=== PATIENT | female | born 2000 | race Two or more races ===

== ENCOUNTER 2019-10-22 17:04 | Outpatient (CLI) | payer MEDICAID ==
[2019-10-22 17:48] LABS: BACTERIA (WET MOUNT) 4+ BACTERIA SEEN; EPITHELIALS (WET MOUNT) 4+ EPITHELIALS SEEN; T.VAGINALIS (WET MOUNT) NO TRICHOMONAS SEEN; WBCS (WET MOUNT) 4+ WBCS SEEN; YEAST (WET MOUNT) YEAST SEEN
[2019-10-22 17:51] LABS: APPEARANCE,URINE SLIGHTLY-CLOUDY; BILIRUBIN,URINE NEGATIVE (NEGATIVE); COLOR,URINE YELLOW; GLUCOSE, URINE 50 mg/dL (NEGATIVE); KETONES,URINE NEGATIVE (NEGATIVE); LEUKOCYTE ESTERASE,URINE TRACE (NEGATIVE); NITRITE,URINE NEGATIVE (NEGATIVE); PROTEIN,URINE 100 mg/dL (NEGATIVE); URINE SPECIFIC GRAVITY 1.025; UROBILINOGEN,URINE NEGATIVE mg/dL (<2.0)
[2019-10-22] MEDS ORDERED: FLUCONAZOLE 100 MG TABLET ONE (18:11)
[2019-10-22 18:21] LABS: URINE AMPHETAMINES SCREEN NEGATIVE; URINE BARBITURATES SCREEN NEGATIVE; URINE BENZODIAZEPINES SCREEN NEGATIVE; URINE COCAINE SCREEN NEGATIVE; URINE MARIJUANA (THC) SCREEN NEGATIVE; URINE METHADONE SCREEN NEGATIVE; URINE PHENCYCLIDINE SCREEN NEGATIVE
--- NOTE | 2019-10-22 18:23 | Non Stress Test Report ---
Non Stress Test Datetime Report Generated by CPN: 10/22/2019 18:22 DEMOGRAPHIC EGA NST: 37.3 INDICATION Indication for Study (NST) Other: IUP 37.3, Provider Order, LC VITAL SIGNS Temperature - NST: 98.0 Pulse - NST: 86 RESP - NST: 16 NBPSYS NST: 123 NBPDIA NST: 74 MONITORING Monitor Explained: Monitor Explained; Test Explained; Patient Verbalized Understanding Time on Monitor: 10/22/2019 17:19 Time off Monitor: 10/22/2019 17:49 NST INTERVENTIONS NST Interventions: None Physician Notified NST: Dr. Aguilar BABY A: [id number] BABY A Movement : Present Contraction Frequency : Irregular FHR Baseline : 135 Accelerations : 15X15 Decelerations : None Variability : Moderate 6-25bpm NST Review: Meets Criteria for Reactive NST NST Review and Verified By : Edelmira Peña RN NST Results: Reactive NST REPORT Report Trigger: Send Report
[2019-10-22] MEDS ORDERED: FLUCONAZOLE 100 MG TABLET PO ONE (18:30)
[2019-10-22 19:13] LABS: CHLAM PCR NOT DETECTED (NOT DETECT)
== END 2019-10-22 18:15 | disposition home or self-care (01) ==
LOC: LC 17:04
PROVIDERS: ATTEND Obstetrics & Gynecology
DX: O98.813 Other maternal infectious and parasitic diseases complicating pregnancy, third trimester (principal); B37.9 Candidiasis, unspecified; O98.313 Other infections with a predominantly sexual mode of transmission complicating pregnancy, third trimester; A60.00 Herpesviral infection of urogenital system, unspecified; Z79.899 Other long term (current) drug therapy; Z3A.37 37 weeks gestation of pregnancy; Z87.891 Personal history of nicotine dependence
CPT/HCPCS: 59025; 87210; 81005; 80307; 87491; 87591; J3490

== ENCOUNTER → 2019-11-11 | Outpatient (CLI) | payer BC, MEDICAID ==
[2019-11-11 17:21] LABS: ALBUMIN 3.7 g/dL (3.5-5.0); ALKALINE PHOSPHATASE 165 U/L (38-126); ASPARTATE AMINO TRANSFERASE 25 U/L (14-36); BILIRUBIN,DIRECT 0.3 mg/dL (0.0-0.4); BILIRUBIN,TOTAL 0.4 mg/dL (0.2-1.3); TOTAL PROTEIN 6.6 g/dL (6.3-8.2)
== END ==
LOC: OD 16:11
PROVIDERS: ATTEND Midwife
DX: L29.9 Pruritus, unspecified (principal)
CPT/HCPCS: 36415; 80076; 82239

== ENCOUNTER 2019-11-12 16:37 | Inpatient (IN) | payer BC, MEDICAID ==
[2019-11-12] MEDS ORDERED: PENICILLIN G-K 5 MILLION UNIT VIAL ONE (16:52)
[2019-11-12] MEDS ORDERED: OXYTOCIN 10 UNIT/ML VIAL ONE (16:52)
[2019-11-12] MEDS ORDERED: MISOPROSTOL 0.2 MG TABLET ONE (16:52)
[2019-11-12] MEDS ORDERED: OXYTOCIN/0.9 % SODIUM CHLORIDE 30 UNIT/500 ML RTUINJ ONE (16:52)
[2019-11-12] MEDS ORDERED: LIDOCAINE 1% INJ-PF (10 MG/ML) 30 ML SDV ONE (16:52)
[2019-11-12 17:04] LABS: APPEARANCE,URINE CLOUDY; BILIRUBIN,URINE NEGATIVE (NEGATIVE); COLOR,URINE YELLOW; GLUCOSE, URINE NEGATIVE (NEGATIVE); KETONES,URINE NEGATIVE (NEGATIVE); LEUKOCYTE ESTERASE,URINE LARGE (NEGATIVE); NITRITE,URINE NEGATIVE (NEGATIVE); PROTEIN,URINE 100 mg/dL (NEGATIVE); URINE SPECIFIC GRAVITY 1.017; UROBILINOGEN,URINE NEGATIVE mg/dL (<2.0)
[2019-11-12] MEDS: RINGERS SOLUTION,LACTATED 1,000 ML IV PRN (17:15)
[2019-11-12 17:23] LABS: URINE AMPHETAMINES SCREEN NEGATIVE; URINE BARBITURATES SCREEN NEGATIVE; URINE BENZODIAZEPINES SCREEN NEGATIVE; URINE COCAINE SCREEN NEGATIVE; URINE MARIJUANA (THC) SCREEN NEGATIVE; URINE METHADONE SCREEN NEGATIVE; URINE PHENCYCLIDINE SCREEN NEGATIVE
[2019-11-12] MEDS ORDERED: DINOPROSTONE 10 MG VAGINAL INSERT.SR PV ONE (17:23)
[2019-11-12] MEDS ORDERED: ACETAMINOPHEN 325 MG TABLET PO PRN (17:23)
[2019-11-12] MEDS ORDERED: ZOLPIDEM TARTRATE 5 MG TABLET PO PRN (17:23)
[2019-11-12] MEDS ORDERED: MAG HYDROX/AL HYDROX/SIMETH SUSP 30 ML UDCUP PO PRN (17:23)
[2019-11-12 18:07] LABS: ABSOLUTE EOSINOPHILS # (AUTO) 0.1 10^3/uL (0.0-0.6); ABSOLUTE LYMPHOCYTES (AUTO) 1.2 10^3/uL (0.5-4.7); ABSOLUTE MONOCYTES (AUTO) 0.7 10^3/uL (0.1-1.4); ABSOLUTE NEUT (AUTO) 5.8 10^3/uL (1.7-8.2); BASOPHILS % (AUTO) 0.3 % (0-2); EOSINOPHILS % (AUTO) 0.8 % (0-6); HEMATOCRIT 29.8 % (36.0-47.0); LYMPHOCYTES % (AUTO) 15.4 % (13-45); MEAN CORPUSCULAR HEMOGLOBIN 28.2 pg (27.0-33.4); MEAN CORPUSCULAR HGB CONC 33.5 g/dL (32.0-36.0); MEAN CORPUSCULAR VOLUME 84 fl (80-97); MONOCYTES % (AUTO) 8.6 % (3-13); PLATELET COUNT 224 10^3/uL (150-450); RED BLOOD COUNT 3.54 10^6/uL (3.72-5.28); SEGMENTED NEUTROPHILS % (AUTO) 74.9 % (42-78); TOTAL CELLS COUNTED % (AUTO) 100 %; WHITE BLOOD COUNT 7.7 10^3/uL (4.0-10.5)
[2019-11-12] MEDS ORDERED: DINOPROSTONE 10 MG VAGINAL INSERT.SR ONE (18:27)
[2019-11-12] MEDS ORDERED: ZOLPIDEM TARTRATE 5 MG TABLET ONE (20:41)
--- NOTE | 2019-11-12 22:21 | Admission Physical ---
Datetime Report Generated by CPN: 11/12/2019 22:21 CURRENT ADMISSION Chief Complaint: Uterine Contractions Chief Complaint Other: rash on abdomen becoming worse. i saw her in the office yesterday and can compare assessments. Today the rash is redder and has spread further down the abdomen Indication for Induction: Other Indication for Induction- Other: suspected cholestasis of . Admit Impression : Term, Intrauterine ; Induction of Labor Admit Plan: Admit to Unit; Initiate Labor Induction Protocol ALLERGIES Medication Allergies: Yes Medication Allergies: amoxicillin (11/12/2019) Latex: Unknown OBSTETRICAL HISTORY EDC: 11/09/2019 00:00 : 1 Para: 0 Term: 0 : 0 SAB: 0 IAB: 0 Ectopic: 0 Livin Cesareans: 0 VBACs: 0 Multiple Births: 0 Gestational Diabetes: No Rh Sensitization: No Incompetent Cervix: No FELICIANO: No Infertility: No ART Treatment: No Uterine Anomaly: No IUGR: No Hx Previous C/S: No Macrosomia: No Hx Loss/Stillborn: No PIH: No Hx : No Placenta Previa/Abruption: No Depression/PP Depression: No PTL/PROM: No Post Hemorrhage: No Current Procedures: Ultrasound Obstetrical History Comments: G1- current SEE RECORDS Alcohol: No Marijuana : No Cocaine: No Other Illicit Drugs: No Cigarettes: Former Smoker. 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 Surgery: No Heart Disease: No Hosp/Surgery: Yes Autoimmune Disorder: No Anesthetic Complications: No Kidney Disease: No Abnormal Pap Smear: No Neuro/Epilepsy: No Psychiatric Disorders: No Other Medical Diseases: No Hepatitis/Liver Disease: No Significant Family History: No Varicosities/Phlebitis: No Trauma/Violence : No Thyroid Dysfunction: No Medical History Comments: wisdom teeth extraction and oral surgery- 06/2017 INFECTIOUS HISTORY Gonorrhea: No Genital Herpes: Yes Chlamydia: Yes Tuberculosis: No Syphilis: No Hepatitis: No HIV/AIDS Exposure: No Rash or Viral Illness: No HPV: No Infectious History Comments: 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 Vital Signs: Reviewed VAGINAL EXAM Dilatation: 2 Effacement: 25 Station: -3 MEMBRANES Pooling: Negative Membranes: Intact FETUS A EGA: 40.3 Monitoring: External US FHR- Baseline: 129 Variability: Moderate 6-25bpm Accelerations: 15X15 Decelerations: None FHR Category: Category I Estimated Weight (gm): 3900 Presentation: Vertex Admit Comment: labs will not be back for a couple of days, however, patient is very symptomatic and it is suspicous for cholestasis. She is postterm and symptoms worsening. will go ahead with induction. PLANS FOR LABOR AND DELIVERY Labor and Delivery: None Pain Management: Natural; Medications; Epidural Feeding Preference: Breast Benefit of Breast Feed Discussed: Yes Circumcision: N/A INFORMED CONSENT Signature: with User ID: [email or web address]
[2019-11-13] MEDS ORDERED: DIPHENHYDRAMINE HCL 50 MG/ML VIAL IV PRN ×2 (06:46→12:01)
[2019-11-13] MEDS ORDERED: OXYTOCIN/0.9 % SODIUM CHLORIDE 30 UNIT/500 ML RTUINJ IV PRN ×2 (07:09→12:16)
[2019-11-13] MEDS ORDERED: VANCOMYCIN HCL INJ 1000 MG VIAL IV ONE (07:10)
[2019-11-13] MEDS ORDERED: VANCOMYCIN HCL INJ 1000 MG VIAL ONE (07:13)
[2019-11-13] MEDS ORDERED: VANCOMYCIN HCL INJ 1000 MG VIAL IV PRN (07:26)
[2019-11-13] MEDS ORDERED: VANCOMYCIN HCL 1,000 MG in DEXTROSE 5%-WATER 250 ML IV SCH (07:30)
[2019-11-13] MEDS ORDERED: VANCOMYCIN HCL 1,500 MG in DEXTROSE 5%-WATER 250 ML IV ONE (07:30)
[2019-11-13] MEDS ORDERED: VANCOMYCIN HCL 1,000 MG in DEXTROSE 5%-WATER 250 ML IV ONE (07:30)
[2019-11-13] MEDS ORDERED: DIPHENHYDRAMINE HCL 50 MG/ML VIAL ONE (08:06)
--- NOTE | 2019-11-13 08:18 | Warning Signs in Babies ---
VOD Warning Signs Datetime Report Generated by [facility]: 11/13/2019 08:18 VOD#608 -Warning Signs in Babies: Viewed with Parent(s)/Family (11/13/2019 08:17:Cam Shaw RN)
[2019-11-13] MEDS: RINGERS SOLUTION,LACTATED 1,000 ML IV PRN ×3 (08:30→21:36)
[2019-11-13] MEDS: VANCOMYCIN HCL 1,000 MG in DEXTROSE 5%-WATER 250 ML IV SCH ×2 (08:54→12:52)
[2019-11-13] MEDS ORDERED: CITRIC ACID/SODIUM CITRATE ORAL SOLN 15 ML UDCUP ONE (11:00)
[2019-11-13] MEDS ORDERED: CEFAZOLIN 2 GM/D5W RTU 2 GM/50 ML RTUPB IV ONE (11:00)
[2019-11-13] MEDS ORDERED: MIDAZOLAM 2 MG/2 ML INJ ONE (11:16)
[2019-11-13] MEDS ORDERED: OXYTOCIN 10 UNIT/ML VIAL ONE (11:16)
[2019-11-13] MEDS ORDERED: MORPHINE SULFATE 10 MG/ML INJ ONE ×2 (11:16→13:12)
[2019-11-13] MEDS ORDERED: OXYTOCIN/0.9 % SODIUM CHLORIDE 30 UNIT/500 ML RTUINJ ONE (11:16)
[2019-11-13] MEDS ORDERED: ONDANSETRON HCL INJ/PF 4 MG/2 ML SDV ONE (11:17)
[2019-11-13] MEDS ORDERED: PHENYLEPHRINE HCL INJ/PF 10 MG/1 ML SDV ONE (11:31)
[2019-11-13] MEDS ORDERED: MORPHINE SULFATE 10 MG/ML INJ IV PRN ×2 (12:01→12:16)
[2019-11-13] MEDS ORDERED: MEPERIDINE HCL/PF INJ 25 MG/1 ML DISP.SYRIN IV PRN (12:01)
[2019-11-13] MEDS ORDERED: FENTANYL CITRATE INJ/PF 100 MCG/2 ML AMPUL IV PRN ×3 (12:01)
[2019-11-13] MEDS ORDERED: PROMETHAZINE HCL INJ 25 MG/1 ML VIAL IV PRN ×3 (12:01→12:16)
[2019-11-13] MEDS ORDERED: RINGERS SOLUTION,LACTATED 1,000 ML IV PRN (12:16)
[2019-11-13] MEDS ORDERED: ACETAMINOPHEN 1,000 MG/100 ML RTUPB IV PRN (12:16)
[2019-11-13] MEDS ORDERED: ACETAMINOPHEN 325 MG TABLET PO PRN (12:16)
[2019-11-13] MEDS ORDERED: DIPH/PERTUSS(ACELL)/TETANUS VAC/PF 0.5 ML SYR (>=10YO) IM PRN (12:16)
[2019-11-13] MEDS ORDERED: SIMETHICONE 80 MG TAB.CHEW PO PRN (12:16)
[2019-11-13] MEDS ORDERED: MEASLES,MUMPS&RUBELLA VACC/PF 0.5 ML VIAL SUBCUT PRN (12:16)
[2019-11-13] MEDS ORDERED: OXYCODONE-ACETAMINOPHEN 5-325 MG TABLET PO PRN (12:16)
--- NOTE | 2019-11-13 12:23 | Operative Report ---
Operative Report DATE OF SURGERY: 11/13/19 PREOPERATIVE DIAGNOSIS: IUP at 8 weeks and 3 days, cholestasis of rc picion, nonreassuring heart tones POSTOPERATIVE DIAGNOSIS: Same OPERATION: Primary low transverse hysterotomy section SURGEON: MARLEY BARAJAS ANESTHESIA: Spinal COMPLICATIONS: None ESTIMATED BLOOD LOSS: 800 cc INTRAOPERATIVE FINDINGS: Female cephalic presentation Apgars 8 and 9 normal uterus tubes and ovaries PROCEDURE: PROCEDURE IN DETAIL: The patient was taken to the operating room, prepared and draped in a normal sterile fashion in a supine position with a leftward tilt. A transverse skin incision was made with a scalpel and carried through to the underlying layer of fascia with the same scalpel. The fascia was excised in the midline and extended laterally with Robinson. The fascia was then dissected from the rectus muscle sharply with Robinson and the rectus muscle was divided and the peritoneal cavity was entered sharply with the same Metzenbaum. With good visualization of the bladder and the uterus the bladder blade was inserted. The hysterotomy was nicked with a scalpel and extended laterally with surgeon finger fraction. The was then delivered atraumatically. The nose and mouth were suctioned with a suction bulb, the cord was clamped and cut and handed off to awaiting pediatricians. Cord blood was collected. The placenta was removed manually. The uterus was exteriorized and cleared of clots and debris. The hysterotomy was closed with 0 Monocryl in a running, locked fashion. A second layer of the same suture was used to imbricate to ensure hemostasis. The uterus was returned to the abdomen and peritoneal cavity was cleared of clots and debris. The rectus muscle and peritoneum were repaired with mattress stitch of 2-0 Chromic. The fascia was closed with 0-Vicryl. The subcutaneous layer was closed with plain catgut and the skin was closed with 4-0 Vicryl. The patient tolerated the procedure well. Sponge, lap, and needle counts correct x2 and the patient was taken to recovery in stable condition.
[2019-11-13] MEDS ORDERED: KETOROLAC TROMETHAMINE INJ/PF 30 MG/1 ML SDV ONE (12:57)
[2019-11-13] MEDS ORDERED: ACETAMINOPHEN 1,000 MG/100 ML RTUPB IV ONE (12:58)
[2019-11-13] MEDS: KETOROLAC TROMETHAMINE INJ/PF 30 MG/1 ML SDV IV SCH ×2 (13:02→21:59)
--- NOTE | 2019-11-13 14:16 | Birth Certificate Data ---
Cert Data Datetime Report Generated by CPN: 11/13/2019 14:15 CERTIFICATE DATA 47a. Care: Yes (10/22/2019 17:09:Cam Shaw RN) 47b. Date of First Visit: 08/05/2019 00:00 (10/22/2019 17:09:Cam Shaw RN) 47c. Date of Last Visit: 11/11/2019 00:00 (10/22/2019 17:09:Cam Shaw RN) 47d. Number of Visits: 10 (10/22/2019 17:09:Cam Shaw RN) 48a. Number of Prev Live Births: 0 (10/22/2019 17:09:Tiffani Vogel RN) 48b. Now Livin (10/22/2019 17:09:Tiffani Vogel RN) 48c. Live Births Now : 0 (10/22/2019 17:09:QS system process) 48e. Losses: 0 (10/22/2019 17:09:Tiffani Vogel RN) RISK FACTORS IN THIS 49a. Diabetes: No (10/22/2019 17:09:Tiffani Vogel RN) 49b. Hypertension: No (10/22/2019 17:09:Tiffani Vogel RN) 49c. Previous Births: 0 (10/22/2019 17:09:Tiffani Vogel RN) 49d. Stillborns: No (10/22/2019 17:09:Yumiko Sauer RN) 49d. IUGR: No (10/22/2019 17:09:Tiffani Vogel RN) 49e. Infertility Treatment: No (10/22/2019 17:09:Tiffani Vogel RN) 49f. Previous Cesareans: 0 (10/22/2019 17:09:Tiffani Vogel RN) Mother's Height 50b. Height Inches: 65 (11/12/2019 16:44:QS system process) Mother's Weight 51a. Pre- Weight (lbs): 135 (10/22/2019 17:09:Yumiko Sauer RN) 51b. Weight at Delivery (lbs): 174 (11/13/2019 13:44:QS system process) 52. Dt Last Normal Menses Began: 02/02/2019 00:00 (10/22/2019 17:09:Tiffani Vogel RN) Infections Present/Treated 53a. Gonorrhea: No (10/22/2019 17:09:Tiffani Vogel RN) Results this Hospital Visit : Negative (10/22/2019 17:09:Yumiko Sauer RN) 53b. Syphilis: No (10/22/2019 17:09:Tiffani Vogel RN) 53c. Chlamydia: Yes (10/22/2019 17:09:Cam Shaw RN) Results this Hospital Visit: Negative (10/22/2019 17:09:Yumiko Sauer RN) 53d. Hepatitis B: No (10/22/2019 17:09:Yumiko Sauer RN) Results this Hospital Visit: Negative (10/22/2019 17:09:Yumiko Sauer RN) 53e. Hepatitis C: Negative (10/22/2019 17:09:Yumiko Sauer RN) 53h. Mother Tested for HBsAG: Yes (10/22/2019 17:09:Yumiko Sauer RN) 53i. Date Tested: 08/22/2019 00:00 (10/22/2019 17:09:Yumiko Sauer RN) 53j. Test Result: Negative (10/22/2019 17:09:Yumiko Sauer RN) Obstetric Procedures 54a, b, c. Obstetric Procedures: Ultrasound (10/22/2019 17:09:Yumiko Sauer RN) Cigarette Smoking Cigarette Smoking: Former Smoker. [id number] (10/22/2019 17:09:Tiffani Vogel RN) 55a. 3 Months Before Preg - Ci (10/22/2019 17:09:Tiffani Vogel RN) 55a. Packs: 0 (10/22/2019 17:09:Tiffani Vogel RN) 55b. 1st Trimester of Preg- Ci (10/22/2019 17:09:Tiffani Vogel RN) 55b. Packs: 0 (10/22/2019 17:09:Tiffani Vogel RN) 55c. 2nd Trimester of Preg- Ci (10/22/2019 17:09:Tiffani Vogel RN) 55c. Packs: 0 (10/22/2019 17:09:Tiffani Vogel RN) 55d. 3rd Trimester of Preg- Ci (10/22/2019 17:09:Tiffani Vogel RN) 55d. Packs: 0 (10/22/2019 17:09:Tiffani Vogel RN) Onset of Labor 56a. PROM >12 Hrs: 0.00 (10/22/2019 17:09:QS system process) 57a. Induction of Labor: Induction (10/22/2019 17:09:Stacy Peña RN) 57a. Induction of Labor: Cervidil (11/12/2019 18:33:Cam Shaw RN) 57c. Non-Vertex Presentation A: Vertex (10/22/2019 17:09:Stacy Peña RN) 57d. Steroids - Lung Mat: None (10/22/2019 17:09:Stacy Peña RN) 57d. Steroids - Lung Mat: Not Applicable (10/22/2019 17:09:Stacy Peña RN) 57e. Antibiotics During Labor: 11/13/2019 08:54 (10/22/2019 17:09:Stacy Peña RN) 57g. Moderate/Heavy Meconium: Clear (10/22/2019 17:09:Cam Shaw RN) 57h. Intolerance of Labor: Nonreassuring Status (10/22/2019 17:09:Stacy Peña RN) : N/A (10/22/2019 17:09:Stacy Peña RN) 57i. Epidural/Spinal Anesthesia: None (10/22/2019 17:09:Stacy Peña RN) Method of Delivery 58a. Forceps - Unsuccessful A: N/A (10/22/2019 17:09:Stacy Peña RN) 58b. Vacuum - Unsuccessful A: N/A (10/22/2019 17:09:Stacy Peña RN) 58c. Presentation at 58c. Presentation at - A : Vertex (10/22/2019 17:09:Stacy Peña RN) 58c. Presentation at - A : N/A (10/22/2019 17:09:Stacy Peña RN) 58c. Presentation at - A : Cephalic (11/13/2019 08:48:Cam Shaw RN) Final Route and Method of Del 58d. Baby A Route/Delivery: (10/22/2019 17:09:Stacy Peña RN) 58e. Trial of Labor Attempted: No (10/22/2019 17:09:Stacy Peña RN) 58e. Trial of Labor Attempted A: N/A (10/22/2019 17:09:Stacy Peña RN) 58e. Trial of Labor Attempted B: N/A (10/22/2019 17:09:Stacy Peña RN) Maternal Morbidity 59b. 3rd or 4th Degree Lacs: None (10/22/2019 17:09:Stacy Peña, RN) Birthweight Baby A: 3530 (10/22/2019 17:09:Grace Marie RN) 60a. Pounds : 7 (10/22/2019 17:09:QS system process) 60b. Ounces: 13 (10/22/2019 17:09:QS system process) 61. GA at Delivery Baby A: 40.4 (10/22/2019 17:09:Stacy Peña RN) : Full Term- 39- 40.6 Weeks (10/22/2019 17:09:QS system process) 62a. 5 Minute Baby A: 9 (10/22/2019 17:09:QS system process)
--- NOTE | 2019-11-13 14:16 | Delivery Summary ---
Del Sum A-C Datetime Report Generated by CPN: 11/13/2019 14:15 DELIVERY PERSONNEL DELIVERY PERSONNEL: [id number] Delivery Doctor:: Alison Sheikh MD AERONAUTICAL ENGINEERING PROFESSOR:: Ayden García CRNA Labor and Delivery Nurse:: Cam Shaw RN Nuclear Chemistry Technician:: Cam Shaw RN Urgent Care Nurse Practitioner:: Dr. Oksana Garcia Nursery Nurse:: Rosangela Mejia RN Assistant Operator/OIL TANK CAR CLEANER: Marisa Brewer CST Assistant Operator/OIL TANK CAR CLEANER: Valentina Gloria, PUBLIC OPINION SURVEY TAKER MATERNAL INFORMATION Delivery Anesthesia: Spinal Medications After Delivery: Pitocin 30 Units in 500ml NS/D5W Delivery QBL: 545 Maternal Complications: None LABOR SUMMARY EDC: 11/09/2019 00:00 No. Babies in Womb: 1 Attempted: No Labor Anesthesia: None LABOR INFORMATION Reason for Induction: Other Reason for Induction- Other: possible cholestasis, post dates Cervical Ripening Agents: Cervidil Oxytocin: Induction Group B Beta Strep: Positive Antibiotics # of Doses: 1 Antibiotics Time of Last Dose: 11/13/2019 08:54 Name of Antibiotic Given: vanc Steroids Given: None Reason Steroids Not Administered: Not Applicable MEMBRANES Membranes Rupture Method: Artificial Rupture of Membranes: 11/13/2019 11:41 Length of Rupture (hr): 0.00 Amniotic Fluid Color: Clear Amniotic Fluid Amount: Small Amniotic Fluid Odor: Normal STAGES OF LABOR Stage 3 hr: 0 Stage 3 min: 1 VAGINAL DELIVERY Episiotomy: None Laceration #1: None Laceration Extension #1: N/A Laceration Repair: Not Applicable Sponge Count Correct: N/A Sharps Count Correct: N/A CSECTION DELIVERY Primary Indication: Nonreassuring Status Secondary Indication: N/A CSection Urgency: Non-Scheduled CSection Incidence: Primary Labor: No Labor Elective: Nonelective CSection Incision: Lower Uterine Transverse BABY A INFORMATION Delivery Date/Time: 11/13/2019 11:41 Method of Delivery: Nurse Controlled Delivery: No Born in Route : No : N/A Forceps: N/A Vacuum Extraction: N/A Shoulder Dystocia : No PRESENTATION/POSITION BABY A Presentation: Cephalic Cephalic Presentation: Vertex Vertex Position: Left Occipital Posterior Breech Presentation: N/A PLACENTA INFORMATION BABY A Placenta Delivery Time : 11/13/2019 11:42 Placenta Method of Delivery: Manual Removal Placenta Status: Delivered SCORES BABY A Heart Rate 1 min: >100 bpm Resp Effort 1 min: Good Cry Reflex Irritability 1 min: Cough or Sneeze or Pulls Away Muscle Tone 1 min: Active Motion Color 1 min: Body [place], Extremities Blue Resuscitation Effort 1 min: N/A SCORE 1 MIN: 9 Heart Rate 5 min: >100 bpm Resp Effort 5 min: Good Cry Reflex Irritability 5 min: Cough or Sneeze or Pulls Away Muscle Tone 5 min: Active Motion Color 5 min: Body [place], Extremities Blue Resuscitation Effort 5 min: N/A SCORE 5 MIN: 9 INFORMATION BABY A Gestational Age at Delivery: 40.4 Gestational Status: Full Term- 39- 40.6 Weeks Outcome : Liveborn Condition : Stable Sex: Female IDENTIFICATION BABY A Infant Verification Date/Time: 11/13/2019 11:46 ID Band Number: [id number] Mother's Name Verified: Yes RN Verifying : B Casey RN/ M Bryant RN WEIGHT/LENGTH BABY A Birthweight (gm): 3530 Weight (lb): 7 Weight (oz): 13 Length (in): 20.50 Length (cm): 52.07 CORD INFORMATION BABY A No. Cord Vessels: 3 Nuchal Cord : N/A Cord Blood Taken: Yes-For Storage (Mom's Blood type +) Infant Suction: Mouth; Nose ASSESSMENT BABY A Skin to Skin: No BABY B INFORMATION : N/A
[2019-11-13] MEDS: OXYCODONE-ACETAMINOPHEN 5-325 MG TABLET PO PRN ×2 (14:53→20:46)
[2019-11-13] MEDS: IBUPROFEN 800 MG TABLET PO SCH ×2 (17:09→23:36)
[2019-11-13] MEDS: DOCUSATE SODIUM 100 MG CAPSULE PO SCH (17:23)
[2019-11-14] MEDS: OXYCODONE-ACETAMINOPHEN 5-325 MG TABLET PO PRN ×2 (04:40→15:51)
[2019-11-14] MEDS: KETOROLAC TROMETHAMINE INJ/PF 30 MG/1 ML SDV IV SCH (06:06)
[2019-11-14] MEDS: IBUPROFEN 800 MG TABLET PO SCH ×4 (06:10→23:28)
[2019-11-14 07:12] LABS: HEMATOCRIT 28.7 % (36.0-47.0); HEMOGLOBIN 9.7 g/dL (12.0-15.5); MEAN CORPUSCULAR HEMOGLOBIN 28.5 pg (27.0-33.4); MEAN CORPUSCULAR VOLUME 84 fl (80-97); PLATELET COUNT 209 10^3/uL (150-450); RED BLOOD COUNT 3.41 10^6/uL (3.72-5.28); RED CELL DISTRIBUTION WIDTH 14.1 % (11.5-14.0); WHITE BLOOD COUNT 9.4 10^3/uL (4.0-10.5)
[2019-11-14] MEDS: PRENATAL VITAMIN W DHA CAPSULE PO SCH (10:27)
[2019-11-14] MEDS: DOCUSATE SODIUM 100 MG CAPSULE PO SCH ×2 (10:27→17:51)
--- NOTE | 2019-11-14 10:34 | PDOC PROGRESS REPORT ---
Subjective-OB Progress Note for:: 11/14/19 - POD #1, doing well, no complaints, UOB, voiding, Failed IOL for cholelithiesis. AB+, Rubella immune, Physical Exam (OB) Vital Signs: Temp Pulse Resp BP Pulse Ox 97.6 F 73 16 131/71 H 100 11/14/19 07:35 11/14/19 07:35 11/14/19 07:35 11/14/19 07:35 11/14/19 07:35 Intake & Output 11/13/19 11/14/19 11/15/19 06:59 06:59 06:59 Intake Total 3687 340 Output Total 1550 Balance 2137 340 Weight 78.9 kg - General General Appearance: Appears well, Alert In distress: None - PIH/Pre-Eclampsia DTR's: 1 + Clonus: Negative Headache: Present Epigastric Pain: No Visual Changes: No - Dressing Removed: Yes Incision: Open Closure Type: Surgical Glue - Maternal Morbidity 59. Maternal Morbidity (serious complications experinced by the mother associated with labor and delivery: None of the above - Lochia Lochia Amount: Scant < 10 ml Lochia Color: Rubra/Red - Abdomen Description: Tender Hernia Present: No Fundal Description: Firm, Midline Fundal Height: u/u - u/2 - Respiratory Respiratory Status: No respiratory distress - Abdominal Distension: No distension Tenderness: Nontender - Genitourinary Genitourinary Note: voiding - Extremities Upper extremity: Normal inspection Lower extremities: Normal inspection - Neurological Cognition: Normal Orientation: AAOx4 - Psychological Associated symptoms: Normal affect, Normal mood - Skin Skin Temperature: Warm Skin Moisture: Dry Objective-Diagnostic Laboratory: 11/14/19 06:30 11/14/19 06:30 WBC 9.4 RBC 3.41 L Hgb 9.7 L Hct 28.7 L MCV 84 MCH 28.5 MCHC 34.0 RDW 14.1 H Plt Count 209 Assessment and Plan(PN) - Assessment and Plan (1) Status post primary low transverse section Is this a current diagnosis for this admission?: Yes (2) Cholelithiases Qualifiers: Cholelithiasis location: gallbladder Is this a current diagnosis for this admission?: Yes (3) History of herpes genitalis Is this a current diagnosis for this admission?: Yes Plan:: Ambulation encouraged, Routine PP and Post Op orders - Time Spent with Patient Time with patient: Less than 15 minutes Critical Time spent with patient: Less than 15 minutes Medications reviewed and adjusted accordingly: Yes - Disposition Anticipated Discharge Disposition: Home, Self Care Anticipated Discharge Timeframe: within 48 hours
[2019-11-14] MEDS ORDERED: CLOTRIMAZOLE/BETAMETHASONE DIP CREAM 15 GM TOP ONE (12:00)
[2019-11-14] MEDS: CLOTRIMAZOLE/BETAMETHASONE DIP CREAM 15 GM TOP SCH (18:43)
[2019-11-15] MEDS: IBUPROFEN 800 MG TABLET PO SCH ×2 (06:21→12:19)
[2019-11-15] MEDS: PRENATAL VITAMIN W DHA CAPSULE PO SCH (09:22)
[2019-11-15] MEDS: DOCUSATE SODIUM 100 MG CAPSULE PO SCH (09:22)
[2019-11-15] MEDS: CLOTRIMAZOLE/BETAMETHASONE DIP CREAM 15 GM TOP SCH (09:24)
--- NOTE | 2019-11-15 11:20 | PDOC DISCHARGE SUMMARY ---
Impression - Admit/DC Date/PCP Admission Date/Primary Care Provider: 11/12/19 16:53 MANDI HERNÁNDEZ MD Discharge Date: 11/15/19 - Discharge Diagnosis (1) Cholelithiases Is this a current diagnosis for this admission?: Yes (2) History of herpes genitalis Is this a current diagnosis for this admission?: Yes (3) Status post primary low transverse section Is this a current diagnosis for this admission?: Yes - Additional Information Resuscitation Status: Full Code Discharge Diet: Regular Discharge Activity: Balance Activity w/Rest, Pelvic Rest Referrals: MANDI HERNÁNDEZ MD [Primary Care Provider] - Prescriptions: Oxycodone HCl/Acetaminophen [Percocet 5-325 mg Tablet] 1 tab PO Q4HP PRN #30 tablet PRN Reason: For Pain Scale 3-5 Ibuprofen [Motrin 800 mg Tablet] 800 mg PO Q8HP PRN #60 tablet PRN Reason: Home Medications: Valacyclovir HCl [Valtrex 500 mg Tablet] 500 mg PO DAILY 11/12/19 Ibuprofen [Motrin 800 mg Tablet] 800 mg PO Q8HP PRN #60 tablet 11/15/19 Oxycodone HCl/Acetaminophen [Percocet 5-325 mg Tablet] 1 tab PO Q4HP PRN #30 tablet 11/15/19 HPI Gestational Age: 40.3 Reason(s) for Admission: Induction of Labor, Obstetric Complications Admission Note: suspect cholestasis of Procedures: NST Intrapartum Procedure(s): : Low Cervical, Transverse Hospital Course 59. Maternal Morbidity (serious complications experinced by the mother associated with labor and delivery: None of the above Results Laboratory Results: WBC 9.4 10^3/uL (4.0-10.5) 11/14/19 06:30 RBC 3.41 10^6/uL (3.72-5.28) L 11/14/19 06:30 Hgb 9.7 g/dL (12.0-15.5) L 11/14/19 06:30 Hct 28.7 % (36.0-47.0) L 11/14/19 06:30 MCV 84 fl (80-97) 11/14/19 06:30 MCH 28.5 pg (27.0-33.4) 11/14/19 06:30 MCHC 34.0 g/dL (32.0-36.0) 11/14/19 06:30 RDW 14.1 % (11.5-14.0) H 11/14/19 06:30 Plt Count 209 10^3/uL (150-450) 11/14/19 06:30 Lymph % (Auto) 15.4 % (13-45) 11/12/19 17:15 [place] % (Auto) 8.6 % (3-13) 11/12/19 17:15 Eos % (Auto) 0.8 % (0-6) 11/12/19 17:15 Baso % (Auto) 0.3 % (0-2) 11/12/19 17:15 Absolute Neuts (auto) 5.8 10^3/uL (1.7-8.2) 11/12/19 17:15 Absolute Lymphs (auto) 1.2 10^3/uL (0.5-4.7) 11/12/19 17:15 Absolute Monos (auto) 0.7 10^3/uL (0.1-1.4) 11/12/19 17:15 Absolute Eos (auto) 0.1 10^3/uL (0.0-0.6) 11/12/19 17:15 Absolute Basos (auto) 0.0 10^3/uL (0.0-0.2) 11/12/19 17:15 Seg Neutrophils % 74.9 % (42-78) 11/12/19 17:15 Urine Color YELLOW 11/12/19 16:45 Urine Appearance CLOUDY 11/12/19 16:45 Urine pH 6.0 (5.0-9.0) 11/12/19 16:45 Ur Specific [place] 1.017 11/12/19 16:45 Urine Protein 100 mg/dL (NEGATIVE) H 11/12/19 16:45 Urine Glucose (UA) NEGATIVE mg/dL (NEGATIVE) 11/12/19 16:45 Urine Ketones NEGATIVE mg/dL (NEGATIVE) 11/12/19 16:45 Urine Blood NEGATIVE (NEGATIVE) 11/12/19 16:45 Urine Nitrite NEGATIVE (NEGATIVE) 11/12/19 16:45 Urine Bilirubin NEGATIVE (NEGATIVE) 11/12/19 16:45 Urine Urobilinogen NEGATIVE mg/dL (<2.0) 11/12/19 16:45 Ur Leukocyte Esterase LARGE (NEGATIVE) H 11/12/19 16:45 Urine Ascorbic Acid NEGATIVE (NEGATIVE) 11/12/19 16:45 Urine Opiates Screen NEGATIVE 11/12/19 16:45 Urine Methadone Screen NEGATIVE 11/12/19 16:45 Ur Barbiturates Screen NEGATIVE 11/12/19 16:45 Ur Phencyclidine Scrn NEGATIVE 11/12/19 16:45 Ur Amphetamines Screen NEGATIVE 11/12/19 16:45 U Benzodiazepines Scrn NEGATIVE 11/12/19 16:45 Urine Cocaine Screen NEGATIVE 11/12/19 16:45 U Marijuana (THC) Screen NEGATIVE 11/12/19 16:45 RPR NONREACTIVE (NONREACTIVE) 11/12/19 17:15 Blood Type AB POSITIVE 11/12/19 17:15 Antibody Screen NEGATIVE 11/12/19 17:15 Plan Plan of Treatment: f/u at [facility] Monday 11/20 for incision check Time Spent: Less than 30 Minutes
[2019-11-15 11:58] VITALS: BP 121/61
== END 2019-11-15 12:41 | disposition home or self-care (01) | DRG 786 ==
LOC: LC 16:37 → LR 16:53 → 2S 11-13 13:30
PROVIDERS: ADMIT Obstetrics & Gynecology; ATTEND Obstetrics & Gynecology
PROC: 10D00Z1 Extraction of Products of Conception, Low, Open Approach (ICD-10-PCS; principal; 2019-11-13)
DX: O48.0 Post-term pregnancy (principal); K83.1 Obstruction of bile duct; O26.62 Liver and biliary tract disorders in childbirth; O98.32 Other infections with a predominantly sexual mode of transmission complicating childbirth; Z3A.40 40 weeks gestation of pregnancy; O76 Abnormality in fetal heart rate and rhythm complicating labor and delivery; O99.824 Streptococcus B carrier state complicating childbirth; O99.334 Smoking (tobacco) complicating childbirth; F17.211 Nicotine dependence, cigarettes, in remission; A60.09 Herpesviral infection of other urogenital tract; Z37.0 Single live birth
CPT/HCPCS: 1961; 36415; 80307; 81005; 85025; 85027; 86592; 86850; 86900; 86901; 94760; 94799; J0131; J0690; J1200; J1885; J2250; J2270; J2370; J2405; J2540; J2590; J3370; J3490; J7060; J7120